=== PATIENT | male | born 1950 | race Caucasian/White ===

== ENCOUNTER 2018-10-28 17:10 | Emergency (ER) | payer MEDICARE, BC ==
[~2018-10-28] VITALS: Ht 177.8 cm; Wt 68.0 kg
--- NOTE | 2018-10-28 17:15 | NUR ---
ED Nurse Note: called pt for triage, per visitor pt stepped out to car. not in wr
--- NOTE | 2018-10-28 17:22 | NUR ---
ED Nurse Note: pt not in wr
--- NOTE | 2018-10-28 17:42 | NUR ---
ED Nurse Note: A/OX4. AMBULATED IN TO ER DUE TO SUDDEN CP DRIVING BACK TO [facility]. PT STATES THAT HE STOPPED TAKING THE CARDIAC MEDS AND RESUMED TODAY. PT DENIES CP AT THIS TIME.
--- NOTE | 2018-10-28 17:43 | NUR ---
ED Nurse Note: DENIES SOB. NO S/S OF DISTRESS.
[2018-10-28 17:45] VITALS: BP 159/85
--- NOTE | 2018-10-28 18:49 | NUR ---
ED Nurse Note: A/Ox4. Pt is cleared by Dr. Decker Pt left without paper.
[2018-10-28 18:53] VITALS: BP 159/85
--- NOTE | 2018-10-28 22:21 | Emergency Room Report ---
History of Present Illness General Chief Complaint: General Complaint Source: Patient Present Illness HPI 68 yo M presents to ED for evaluation. patient states that he was driving from [place] to [place] and says he started to 'feel weird'. states he had an episode of chest tightness. lasted for a few seconds then resolved. states that he was seen in an ER in [place] just prior to this. had full workup which was negative and subsequently discharged. patient states he had run out of his BP meds and got refills in [place]. also states he was given refill of his psych meds. denies any chest pain, chest tightness or SOB at this time. denies alcohol or drug use. denies smoking. no other aggravating or relieving factors. Denies any other associated symptoms. Allergies: Coded Allergies: No Known Allergies (Unverified , 10/28/18) Patient History Past Medical History: HTN, psych hx Past Surgical History: none Pertinent Family History: none Social History: Denies: smoking, alcohol use, drug use Immunizations: UTD Reviewed Nursing Documentation: PMH: Agreed; PSxH: Agreed Nursing Documentation-PMH Past Medical History: No History, Except For Hx Cardiac Problems: Yes Hx Hypertension: Yes History Of Psychiatric Problem: Yes - depression Review of Systems All Other Systems: negative except mentioned in HPI Physical Exam Vital Signs Date Time Temp Pulse Resp B/P (MAP) Pulse Ox O2 Delivery O2 Flow Rate FiO2 10/28/18 17:37 98.1 71 18 159/85 98 Room Air Sp02 EP Interpretation: reviewed, normal General Appearance: no apparent distress, alert, GCS 15, non-toxic Head: normocephalic, atraumatic Eyes: bilateral eye normal inspection, bilateral eye PERRL ENT: hearing grossly normal, normal pharynx, no angioedema, normal voice Neck: full range of motion, supple/symm/no masses Respiratory: chest non-tender, lungs clear, normal breath sounds, speaking full sentences Cardiovascular #1: regular rate, rhythm, no edema Cardiovascular #2: 2+ carotid (R), 2+ carotid (L), 2+ radial (R), 2+ radial (L) , 2+ dorsalis pedis (R), 2+ dorsalis pedis (L) Gastrointestinal: normal bowel sounds, non tender, soft, non-distended, no guarding, no rebound Rectal: deferred Genitourinary: normal inspection, no CVA tenderness Musculoskeletal: back normal, gait/station normal, normal range of motion, non- tender Neurologic: alert, oriented x3, responsive, motor strength/tone normal, sensory intact, speech normal Psychiatric: judgement/insight normal, memory normal, no suicidal/homicidal ideation, anxious Reflexes: 3+ bicep (R), 3+ bicep (L), 3+ tricep (R), 3+ tricep (L), 3+ knee (R) , 3+ knee (L) Skin: normal color, no rash, warm/dry, well hydrated Lymphatic: no adenopathy Medical Decision Making Diagnostic Impression: Primary Impression: Hypertension Qualified Codes: I10 - Essential (primary) hypertension ER Course 68 yo M presents to ED for evaluation of chest tightness, BP high differential - ACS, hypertensive urgency, anxiety patient placed on chair. after initial history, physical exam reveals elderly male in no acute distress. physical exam unremarkable. EKG - NSR, no acute ischemic changes interpreted by me BP in triage 159/85. discussed findings with patient. patient appears anxious. I believe there is an psychiatric component contributing to patient's symptoms when I asked patient how he ended up in [place] when he was traveling between [place] and [place], he states he got nervous and got lost i gave reassurance to patient that his BP is not markedly elevated. no signs of end organ damage. i encourage patient to continue his BP meds as directed. I also reassured patient that his workup from the ER in [place] was unremarkable. safe for discharge with close outpatient followup. patient states he has PMD Diagnosis - hypertension stable and discharged to home. continue BP meds and psych meds as prescribed. followup with PMD. return to ED if symptoms recur/worsen. EKG Diagnostic Results Rate: normal Rhythm: NSR ST Segments: no acute changes ASA given to the pt in ED: No Rhythm Strip Diag. Results EP Interpretation: yes Rhythm: NSR, no PVC's, no ectopy Last Vital Signs Date Time Temp Pulse Resp B/P (MAP) Pulse Ox O2 Delivery O2 Flow Rate FiO2 10/28/18 18:53 98.1 18 159/85 98 Room Air 10/28/18 17:45 71 Disposition: HOME, SELF-CARE Condition: Stable [facility]: [facility] Patient Instructions: Hypertension, [id number] Adan Madison MD Oct 28, 2018 22:21
== END 2018-10-28 18:55 | disposition home or self-care (01) ==
LOC: EMR 18:40
DX: I10 Essential (primary) hypertension (principal); F32.9 Major depressive disorder, single episode, unspecified; Z87.898 Personal history of other specified conditions
CPT/HCPCS: 93005; 99283